=== PATIENT | female | born 1965 | race Caucasian/White ===

== ENCOUNTER 2020-11-16 15:03 | Emergency (ER) | payer BC ==
--- NOTE | 2020-11-16 15:36 | EDM.PDOC ---
ED HPI GENERAL MEDICAL PROBLEM - General Chief Complaint: Cardiovascular Problem Stated Complaint: CHEST PAINS SOB Time Seen by Provider: 11/16/20 15:33 Source of Information: Reports: Patient History Limitations: Reports: No Limitations - History of Present Illness INITIAL COMMENTS - FREE TEXT/NARRATIVE: 54-year-old female no past medical history presents for heart racing. Patient woke up around 4 AM with a heart racing sensation. All day she has felt her heart racing and shortness of breath and fatigue. She denies any chest pain. No history of similar. - Related Data Allergies Allergy/AdvReac Type Severity Reaction Status Date / Time celecoxib [From Celebrex] Allergy Shortness Verified 02/02/17 14:30 of Breath Home Meds: Home Meds Albuterol [IJP: Ventolin HFA] 2 puff INH ASDIRECTED PRN 01/21/17 [History] Fluticasone Propion/Salmeterol [Advair 250-50 Diskus] 1 inhalation INH ASDI RECTED 01/21/17 [History] Omeprazole Magnesium [Prilosec Otc] 40 mg PO DAILY 01/21/17 [History] Sertraline HCl [Zoloft] 50 mg PO DAILY 01/21/17 [History] Acetaminophen/HYDROcodone [[place] 325-5 MG] 1 tab PO Q4H PRN #30 tablet 02/09/17 [Rx] Past Medical History HEENT History: Reports: Other (See Below) Other HEENT History: wears glasses Respiratory History: Reports: Asthma Gastrointestinal History: Reports: GERD Genitourinary History: Reports: None [employer] History: Reports: Musculoskeletal History: Reports: Arthritis Neurological History: Reports: Other (See Below) Other Neuro History: hx bells palsy Psychiatric History: Reports: Anxiety Endocrine/Metabolic History: Reports: Obesity/BMI 30+ Dermatologic History: Reports: Other (See Below) Other Dermatologic History: granuloma annulare - Past Surgical History Head Surgeries/Procedures: Reports: None GI Surgical History: Reports: Bariatric Procedure, Other (See Below) Other GI Surgeries/Procedures: lap band placement and lap band removal Female Surgical History: Reports: Section Musculoskeletal Surgical History: Reports: Carpal Tunnel, Other (See Below) Other Musculoskeletal Surgeries/Procedures:: ankle surgery, hx of left carpal tunnel release 01/26/17 Social & Family History - Family History Family Medical History: No Pertinent Family History ED ROS GENERAL - Review of Systems Review Of Systems: Comprehensive ROS is negative, except as noted in HPI. ED EXAM, GENERAL - Physical Exam Exam: See Below Exam Limited By: No Limitations General Appearance: Alert, WD/WN, No Apparent Distress Ears: Hearing Grossly Normal Throat/Mouth: Normal Voice, No Airway Compromise Head: Atraumatic, Normocephalic Neck: Normal Inspection Respiratory/Chest: No Respiratory Distress, Lungs Clear, Normal Breath Sounds, No Accessory Muscle Use Cardiovascular: Normal Peripheral Pulses, Tachycardia Extremities: Normal Inspection Neurological: Alert, Normal Cognition, Normal Gait Psychiatric: Normal Affect, Normal Mood Skin Exam: Warm, Dry, Intact, Normal Color #1 Interpretation EKG Date: 11/16/20 Time: 15:12 Rhythm: Other (junctional tachycardia) Rate (Beats/Min): 144 [place]: Normal P-Wave: Absent QRS: Normal ST-T: Normal QT: Normal Comparison: NA - No Prior EKG EKG Interpretation Comments: junctional tachycardia #2 Interpretation EKG Date: 11/16/20 Time: 17:10 Rhythm: NSR Rate (Beats/Min): 83 [place]: Normal P-Wave: Present QRS: Normal ST-T: Normal QT: Normal IN/PQ Interval: 157 Comparison: Change From Previous EKG EKG Interpretation Comments: normal EKG Course - Vital Signs Last Recorded V/S: Last Vital Signs Temp 97.0 F 11/16/20 15:35 Pulse 84 11/16/20 16:46 Resp 18 11/16/20 16:27 BP 147/51 H 11/16/20 16:46 Pulse Ox 99 11/16/20 16:27 - Orders/Labs/Meds Orders: Active Orders 24 hr Category Date Time Status Cardiac Monitoring [RC] . DIRECTED Care 11/16/20 15:49 Active Pulse Oximetry [RC] ASDIRECTED Care 11/16/20 15:49 Active Saline Lock Insert [OM.PC] Stat Oth 11/16/20 15:49 Ordered Labs: Laboratory Tests 11/16/20 11/16/20 11/16/20 Range/Units 17:30 17:30 17:30 WBC 5.65 (4.0-11.0) K/uL RBC 5.14 (4.30-5.90) M/uL Hgb 15.9 (12.0-16.0) g/dL Hct 46.0 (36.0-46.0) % MCV 89.5 (80.0-98.0) fL MCH 30.9 (27.0-32.0) pg MCHC 34.6 (31.0-37.0) g/dL RDW Std Deviation 38.7 (28.0-62.0) fl RDW Coeff of [place] 12 (11.0-15.0) % Plt Count 214 (150-400) K/uL MPV 9.70 (7.40-12.00) fL Neut % (Auto) 65.6 (48.0-80.0) % Lymph % (Auto) 18.9 (16.0-40.0) % [place] % (Auto) 9.7 (0.0-15.0) % Eos % (Auto) 5.3 (0.0-7.0) % Baso % (Auto) 0.5 (0.0-1.5) % Neut # (Auto) 3.7 (1.4-5.7) K/uL Lymph # (Auto) 1.1 (0.6-2.4) K/uL [place] # (Auto) 0.6 (0.0-0.8) K/uL Eos # (Auto) 0.3 (0.0-0.7) K/uL Baso # (Auto) 0.0 (0.0-0.1) K/uL Nucleated RBC % 0.0 /100WBC Nucleated RBCs # 0 K/uL Sodium 143 (136-145) mmol/L Potassium 3.8 (3.5-5.1) mmol/L Chloride 108 H (98-107) mmol/L Carbon Dioxide 28.7 (21.0-32.0) mmol/L BUN 22 H (7.0-18.0) mg/dL Creatinine 0.8 (0.6-1.0) mg/dL Est Cr Clr Drug Dosing 59.96 mL/min Estimated GFR (MDRD) > 60.0 ml/min Glucose 93 (74-106) mg/dL Calcium 8.0 L (8.5-10.1) mg/dL Total Bilirubin 0.4 (0.2-1.0) mg/dL AST 19 (15-37) IU/L ALT 26 (14-63) IU/L Alkaline Phosphatase 66 (46-116) U/L Troponin I < 0.050 (0.000-0.056) ng/mL B-Natriuretic Peptide 98 (<100) PG/ML Total Protein 6.2 L (6.4-8.2) g/dL Albumin 3.4 (3.4-5.0) g/dL Globulin 2.8 (2.6-4.0) g/dL Albumin/Globulin Ratio 1.2 (0.9-1.6) TSH, Ultra Sensitive 1.75 (0.36-3.74) uIU/mL Meds: Medications Discontinued Medications Generic Name Dose Route Start Last Admin Trade Name Freq PRN Reason Stop Dose Admin Adenosine 6 mg 11/16/20 15:50 11/16/20 16:24 Adenosine 6 Mg/2 Ml Sdv IVPUSH 11/16/20 15:51 6 mg NOW ONE Administration Adenosine 12 mg 11/16/20 16:14 11/16/20 16:34 Adenosine 6 Mg/2 Ml Sdv IVPUSH 11/16/20 16:15 Not Given NOW ONE Adenosine 12 mg 11/16/20 16:15 11/16/20 16:34 Adenosine 6 Mg/2 Ml Sdv IVPUSH 11/16/20 16:16 Not Given NOW ONE Sodium Chloride 1,000 mls @ 999 mls/hr 11/16/20 15:49 11/16/20 16:26 Normal Saline IV 11/16/20 16:49 999 mls/hr .Bolus ONE Administration Metoprolol Tartrate 5 mg 11/16/20 16:27 11/16/20 16:47 Metoprolol Tartrate 5 Mg/5 Ml Sdv IVPUSH 11/16/20 16:28 Not Given ONETIME ONE Metoprolol Tartrate 25 mg 11/16/20 16:44 11/16/20 16:46 Metoprolol Tartrate 25 Mg Tab PO 11/16/20 16:45 25 mg ONETIME ONE Administration - Re-Assessments/Exams Free Text/Narrative Re-Assessment/Exam: 11/16/20 16:22 Patient's EKG is consistent with junctional tachycardia. Will trial adenosine 11/16/20 16:27 Patient had a good response to adenosine 6 mg. She converted to normal sinus rhythm rate of 90s to 110s. Will give 5 mg metoprolol. 11/16/20 18:17 Labs are unremarkable. Will discharge patient on 25 mg metoprolol daily and recommend cardiology follow-up. She was placed on her cardiology follow-up list. Departure - Departure Time of Disposition: 18:18 Disposition: Home, Self-Care 01 Condition: Good Clinical Impression: Junctional tachycardia Instructions: Supraventricular Tachycardia, Adult Referrals: PCP,None [Primary Care Provider] - Forms: ED Department Discharge Additional Instructions: Your labs were unremarkable. Your heart rate has normalized. I sent a prescription to your pharmacy for medication called metoprolol that can help prevent you going back into this rhythm. If you feel yourself go back into this rhythm with rapid heart rate then you should come back to the emergency department. I also placed you on a cardiology follow-up list as you should see a hog grader for further work-up. They should be calling you but information is provided below if for whatever reason you fall through the cracks. [facility] Cardiology [address] [place] [id number] The following information is given to patients seen in the emergency department who are being discharged to home. This information is to outline your options for follow-up care. We provide all patients seen in our emergency department with a follow-up referral. The need for follow-up, as well as the timing and circumstances, are variable depending upon the specifics of your emergency department visit. If you don't have a primary care physician on staff, we will provide you with a referral. We always advise you to contact your personal physician following an emergency department visit to inform them of the circumstance of the visit and for follow-up with them and/or the need for any referrals to a consulting specialist. The emergency department will also refer you to a specialist when appropriate. This referral assures that you have the opportunity for follow-up care with a specialist. All of these measure are taken in an effort to provide you with optimal care, which includes your follow-up. Under all circumstances we always encourage you to contact your private physician who remains a resource for coordinating your care. When calling for follow-up care, please make the office aware that this follow-up is from your recent emergency room visit. If for any reason you are refused follow-up, please contact the [facility] Emergency Department at and asked to speak to the emergency department charge nurse. Please follow up with your primary care physician. If you do not have a primary care physician, see below: [facility] Primary Care [address], [place] [address] My [facility] [address] [place], [place] [id number] [facility] - [facility] [address] [place] [address] Sepsis Event Note (ED) - Focused Exam Vital Signs: Vital Signs Temp Pulse Pulse Resp BP BP Pulse Ox 11/16/20 16:46 84 147/51 H 11/16/20 16:27 94 18 147/81 H 99 11/16/20 15:35 97.0 F 153 H 18 132/105 H 98 - My Orders Last 24 Hours: My Active Orders 11/16/20 15:49 Cardiac Monitoring [RC] . DIRECTED Pulse Oximetry [RC] ASDIRECTED Saline Lock Insert [OM.PC] Stat - Assessment/Plan Last 24 Hours: My Active Orders 11/16/20 15:49 Cardiac Monitoring [RC] . DIRECTED Pulse Oximetry [RC] ASDIRECTED Saline Lock Insert [OM.PC] Stat
[2020-11-16] MEDS ORDERED: Sodium Chloride 0.9% 1,000 ML IV ONE (15:49)
[2020-11-16] MEDS ORDERED: Adenosine 6 MG/2 ML SDV IVPUSH ONE ×3 (15:50→16:15)
[2020-11-16] MEDS ORDERED: Metoprolol Tartrate 5 MG/5 ML SDV IVPUSH ONE (16:27)
[2020-11-16] MEDS ORDERED: Metoprolol Tartrate 25 MG Tab PO ONE (16:44)
[2020-11-16 18:16] LABS: BLOOD UREA NITROGEN,BUN 22 mg/dL (7.0-18.0); CARBON DIOXIDE,CO2 28.7 mmol/L (21.0-32.0); CHLORIDE,CL 108 mmol/L (98-107); GLUCOSE RANDOM 93 mg/dL (74-106); POTASSIUM,K 3.8 mmol/L (3.5-5.1); SODIUM,NA 143 mmol/L (136-145)
== END 2020-11-16 18:39 | disposition home or self-care (01) ==
LOC: MW.ED 15:03
DX: I47.1 Supraventricular tachycardia (principal); J45.909 Unspecified asthma, uncomplicated; K21.9 Gastro-esophageal reflux disease without esophagitis; E66.9 Obesity, unspecified; Z68.37 Body mass index [BMI] 37.0-37.9, adult; Z88.8 Allergy status to other drugs, medicaments and biological substances; Z79.899 Other long term (current) drug therapy
CPT/HCPCS: 36415; 80053; 83880; 84443; 84484; 85025; 93005; 96374; 99285; A9270; J0153; J7030

== ENCOUNTER 2021-06-14 16:05 | Emergency (ER) | payer BC ==
[2021-06-14] MEDS ORDERED: Sodium Chloride 0.9% 1,000 ML IV ONE (16:31)
[2021-06-14] MEDS ORDERED: Sodium Chloride 0.9% 10 ML Syringe FLUSH PRN (16:31)
[2021-06-14] MEDS ORDERED: Sodium Chloride 0.9% 2.5 ML Syringe FLUSH PRN (16:31)
[2021-06-14] MEDS ORDERED: Adenosine 6 MG/2 ML SDV IVPUSH ONE ×3 (16:33→17:03)
[2021-06-14] MEDS: Adenosine 6 MG/2 ML SDV ONE ×2 (16:55→16:58)
[2021-06-14] MEDS ORDERED: Metoprolol Tartrate 5 MG/5 ML SDV IVPUSH ONE (17:02)
[2021-06-14] MEDS ORDERED: Metoprolol Tartrate 50 MG Tab PO ONE (17:02)
[2021-06-14 17:17] LABS: BLOOD UREA NITROGEN,BUN 21 mg/dL (7.0-18.0); CHLORIDE,CL 104 mmol/L (98-107); GLUCOSE RANDOM 126 mg/dL (74-106); POTASSIUM,K 3.7 mmol/L (3.5-5.1); SODIUM,NA 143 mmol/L (136-145)
== END 2021-06-14 17:58 | disposition home or self-care (01) ==
LOC: MW.ED 16:05
DX: I47.1 Supraventricular tachycardia (principal); K21.9 Gastro-esophageal reflux disease without esophagitis; E66.9 Obesity, unspecified; Z88.8 Allergy status to other drugs, medicaments and biological substances; Z79.899 Other long term (current) drug therapy; Z87.891 Personal history of nicotine dependence; Z68.37 Body mass index [BMI] 37.0-37.9, adult
CPT/HCPCS: 36415; 71045; 80053; 83735; 84443; 84484; 85025; 93005; 96374; 96375; 99285; A9270; J0153; J3490; J7030